=== PATIENT | female | born 1990 | race Caucasian/White ===

== ENCOUNTER → 2018-07-21 20:56 | Outpatient (CLI) | payer MEDICAID ==
[2009-11-25 05:35] VITALS: BMI 28.3
[~2018-07-21 20:56] MED LIST: ACETAMINOPHEN500 M1; FIBER GUMMIES; INDERAL 40 MG T40 MG; PEPPERMINT OIL; PRENATAL GUMMIES
[2018-07-21 21:16] LABS: APPEARANCE CLEAR (CLEAR); BILIRUBIN NEGATIVE (NEGATIVE); COLOR YELLOW (YELLOW); GLUCOSE NEGATIVE (NEGATIVE); KETONE NEGATIVE (NEGATIVE); NITRITE NEGATIVE (NEGATIVE); PROTEIN NEGATIVE (NEGATIVE); UROBILINOGEN NORMAL (NORMAL)
== END | disposition home or self-care (01) ==
LOC: D.LDO 20:56
PROVIDERS: Obstetrics & Gynecology
DX: O26.893 Other specified pregnancy related conditions, third trimester (principal); Z3A.38 38 weeks gestation of pregnancy; R42 Dizziness and giddiness; R51 Headache